=== PATIENT | male | born 1945 | race Caucasian/White ===

== ENCOUNTER 2021-01-14 11:49 | Emergency (ER) | payer MEDICARE, OTHER ==
[~2021-01-14 11:49] MED LIST: BUPROPION XL300 MG PO; DIAZEPAM 2MG TAB2 MG PO; ELIQUIS5 MG PO; ISOSORBIDE MONO30 MG PO; LASIX20 MG PO; LIPITOR40 MG PO; MAGNESIUM500 MG PO; MEN'S 50 PLUS1 EACH PO; MIRALAX17 GM PO; NEURONTIN100 MG PO; PROTONIX 40MG T40 MG PO; VITAMIN B12-FO1 EACH PO; VITAMIN D3 PO
[2021-01-14 14:35] LABS: BASOPHIL 0.2 % (0-2); EOSINOPHIL 2.6 % (0-7); HCT 33.1 % (42.0-52.0); HGB 10.4 g/dl (13.2-18.0); LYMPHOCYTE 27.8 % (15-48); MCH 29.5 pg (25.0-31.0); MCHC 31.4 g/dL (32.0-36.0); MONOCYTE 11.7 % (0-12); MPV 10.1 fL (6.0-9.5); NEUTROPHIL 57.5 % (41-80); NRBC 0; PLT 168 K/uL (150-400); RBC 3.52 M/uL (4.70-6.00); RDW 17.5 % (11.5-14.0)
[2021-01-14 14:50] LABS: INR 1.37 (0.9-1.2)
[2021-01-14 14:51] LABS: PTT 34.3 SECONDS (22.2-34.7)
[2021-01-14 15:09] LABS: ALBUMIN 3.2 g/dL (3.4-5.0); ALKALINE PHOSHATASE 69 U/L (46-116); ALT 35 U/L (16-63); AST 27 U/L (15-37); BILIRUBIN - TOTAL 0.6 mg/dL (0.2-1.0); BUN 18 mg/dL (7-18); BUN/CREAT RATIO (CALC) 10.8 RATIO; C-REACTIVE PROTEIN <0.20 mg/dL (<=0.90); CHLORIDE 102 mmol/L (98-107); CO2 (BICARBONATE) 33 mmol/L (21-32); CPK 196 U/L (39-308); CREATININE 1.66 mg/dL (0.67-1.17); GLOBULIN (CALCULATION) 2.7 g/dL; GLUCOSE 86 mg/dL (74-106); LDH 211 U/L (85-227); POTASSIUM 3.8 mmol/L (3.5-5.1); TOTAL PROTEIN 5.9 g/dL (6.4-8.2)
[2021-01-14] MEDS ORDERED: TRIAMCINOLONE A15 G1 TOP (16:15)
[2021-01-14] MEDS ORDERED: BACTROBAN NASAL1 GM TOP (16:15)
== END 2021-01-14 16:55 | disposition home or self-care (01) ==
LOC: FER 11:49
PROVIDERS: Emergency Medicine
DX: L95.9 Vasculitis limited to the skin, unspecified (principal); Z20.822 Contact with and (suspected) exposure to COVID-19
CPT/HCPCS: 36415; 73630; 80053; 82550; 82728; 83615; 84145; 85025; 85610; 85730; 86140; 87040; 93005; U0002

== ENCOUNTER → 2022-04-11 | Day surgery (SDC) | payer MEDICARE, OTHER ==
[~2022-04-11] VITALS: Ht 190.5 cm; Wt 111.1 kg
[~2022-04-11] MED LIST changes: +BACTROBAN NASAL1 GM TOP; +CARAFATE1 GM PO; +TRIAMCINOLONE A15 G1 TOP
== END | disposition home or self-care (01) ==
LOC: FAS 08:17
DX: D50.0 Iron deficiency anemia secondary to blood loss (chronic) (principal); K92.1 Melena; K31.9 Disease of stomach and duodenum, unspecified; K31.7 Polyp of stomach and duodenum; K29.00 Acute gastritis without bleeding; I48.91 Unspecified atrial fibrillation; N18.9 Chronic kidney disease, unspecified; Z85.828 Personal history of other malignant neoplasm of skin; Z86.73 Personal history of transient ischemic attack (TIA), and cerebral infarction without residual deficits; Z87.891 Personal history of nicotine dependence; Z79.01 Long term (current) use of anticoagulants
CPT/HCPCS: J2704; J7120

== ENCOUNTER → 2022-05-09 | Day surgery (SDC) | payer MEDICARE, OTHER ==
[~2022-05-09] VITALS: Ht 191 cm; Wt 108.9 kg
[~2022-05-09] MED LIST changes: +SOAANZ20 MG PO
[2022-05-09 09:50] LABS: HCT 34.6 % (42.0-52.0); MCH 29.8 pg (25.0-31.0); MCHC 31.8 g/dL (32.0-36.0); MCV 93.8 fL (78.0-100.0); MPV 11.2 fL (6.0-9.5); RBC 3.69 M/uL (4.70-6.00); RDW 16.5 % (11.5-14.0); WBC 5.5 K/uL (4.0-10.5)
[2022-05-09 09:58] LABS: ALBUMIN 3.4 g/dL (3.4-5.0); BILIRUBIN - TOTAL 0.4 mg/dL (0.2-1.0); BUN/CREAT RATIO (CALC) 12.4 RATIO; CREATININE 2.1 mg/dL (0.67-1.17); GLOBULIN (CALCULATION) 2.7 g/dL; POTASSIUM 4.1 mmol/L (3.5-5.1); TOTAL PROTEIN 6.1 g/dL (6.4-8.2)
== END | disposition home or self-care (01) ==
LOC: FAS 08:44
PROVIDERS: Surgery
DX: K31.A22 Gastric intestinal metaplasia with high grade dysplasia (principal); K92.1 Melena; I12.9 Hypertensive chronic kidney disease with stage 1 through stage 4 chronic kidney disease, or unspecified chronic kidney disease; N18.30 Chronic kidney disease, stage 3 unspecified; E78.00 Pure hypercholesterolemia, unspecified; I48.91 Unspecified atrial fibrillation; G47.30 Sleep apnea, unspecified; F41.9 Anxiety disorder, unspecified; Z79.01 Long term (current) use of anticoagulants; Z79.899 Other long term (current) drug therapy
CPT/HCPCS: 36415; 80053; J2250; J2704; J3010; J7120